=== PATIENT | female | born 1955 | race Caucasian/White ===

== ENCOUNTER 2022-03-16 15:52 | Outpatient (RCR) | payer BC, SELFPAY | END 2022-05-21 07:38 | disposition home or self-care (01) | PROVIDERS: Visit Provider Family Medicine | DX: M25.559 Pain in unspecified hip (principal); M54.50 Low back pain, unspecified; Z51.89 Encounter for other specified aftercare | CPT/HCPCS: 97110; 97162 ==

== ENCOUNTER 2022-07-08 11:02 | Emergency (ER) | payer BC, SELFPAY ==
[2022-07-08] VITALS (10 sets, daily range): BP systolic 108–135; BP diastolic 64–79; PULSE 57–75; RESP 16–20; TEMP 36.6; O2SAT 92–97; BMI 19.6
--- NOTE | 2022-07-08 11:47 | ED_ITS ---
HPI - General Adult General Time Seen by Provider: 11:48 Date Seen: 07/08/22 Chief complaint: Weakness Stated complaint: Dehydrated Time Seen by Provider: 07/08/22 11:32 Source: patient and RN notes reviewed Mode of arrival: ambulatory Limitations: no limitations History of Present Illness HPI narrative: Patient is a 67-year-old female coming into the ER with concern of weakness. She states she was told to come in and get IV fluids. On Tuesday this past weekend she had severe chills, body aches, did not feel well. She completed her shift at the [employer]. She did end up getting a new thermometer that her son brought her as hers was broke. She ran temperatures intermittently up to 102. She went into the clinic at [facility] Tuesday and then again yesterday. Yesterday they did a COVID swab but it is still pending. On Tuesday she states they did some blood work and that looked good. She did not get any testing for influenza or any thing of that nature. Yesterday she had a little dry sore throat for a little bit but nothing since. She has not noted any cough or cold symptoms otherwise. No nausea or vomiting. She had 1 day of constipation during this illness and then diarrhea the next day. Otherwise really nothing specific. She still just feeling weak. She states something kicks her butt. In her past medical history she denies any significant cardiopulmonary issues. She states she is prediabetic. She has had her gallbladder out, bone spur removal and a trigger finger surgery. She states at the visits her blood pressure was reportedly low, oxygen was mildly low at 1 visit. I do not have those records. Related Data Allergies Allergy/AdvReac Type Severity Reaction Status Date / Time bacitracin Allergy Verified 07/08/22 11:19 neomycin Allergy Verified 07/08/22 11:19 nickel Allergy Uncoded 07/08/22 11:19 Review of Systems Status of ROS: Reports: 10 or more systems reviewed and unremarkable except as noted in History and below [facility] Social History Smoking Status: Current every day smoker What tobacco products do you use: cigarettes Smoking packs per day: 0.5 Smoking cigarettes per day: 10.0 Years smoked: 45 Smoking pack-years: 22.50 Do you use any of these nicotine containing products: None Second hand tobacco smoke exposure: No How often do you have a drink containing alcohol: never How often do you have six or more drinks on one occasion: Never AUDIT-C Alcohol total score: 0 Non-prescribed substance use: denies use service: No Exam Const: Vital Signs, click to edit/add: Vital Signs - 24 hr 07/08/22 11:20 07/08/22 11:56 Temperature 97.9 F Pulse Rate [Pulse Oximeter] 70 Respiratory Rate 20 Blood Pressure [Le ft Upper Arm] 114/75 Pulse Oximetry 95 97 Oxygen Delivery Me thod Room Air Documenting provider has reviewed patient's vital signs: yes Common normals: no apparent distress, average body habitus, oriented x3, no limitations, healthy appearing and alert General appearance: cooperative, comfortable and well kempt Nutritional appearance: thin HENMT: Common normals: normocephalic, head/scalp atraumatic, hearing grossly normal bilaterally, external ears normal, TM's normal bilaterally, external nose normal, nasal mucous membranes and turbinates normal, moist oral mucous mem branes, oropharynx normal (But is edentulous) and gingiva normal Head and scalp: normocephalic and atraumatic Nose: external nose normal and nasal mucous membranes and turbinates normal External ear: external ears normal Tympanic membrane: TM's normal bilaterally Eye: Common normals: PERRL, EOMs intact bilaterally, conjunctivae normal and no scleral icterus Conjunctiva: conjunctiva(e) normal Pupil: PERRL Neck & C-Spine: Common normals: full ROM, no lymphadenopathy, supple, no meningeal signs, no JVD and thyroid normal Thyroid: thyroid normal Resp: Common normals: normal respiratory effort, no retractions and no use of accessory muscles Other: Has some faint fibrotic sounding crackles both bases, somewhat distant breath sounds. Cardio: Common normals: no JVD, regular rate, regular rhythm, S1 normal heart sound, S2 normal heart sound, no gallops, no clicks, no murmurs and no rub Rate: regular rate Rhythm: regular rhythm Heart sounds: S1 normal and S2 normal GI: Common normals: Normal to inspection, nondistended, normoactive bowel sounds present, soft to palpation, non-tender, no hepatosplenomegaly and no masses Palpation: soft and no hepatosplenomegaly Back & Pelvis: Common normals: thoracic and lumbar spine normal to inspection and no thoracic nor lumbar tenderness Extremity: Common normals: normal to inspection, full ROM, normal capillary refill, no joint enlargement, no clubbing, cyanosis or edema, no calf tenderness and no pedal edema Neuro: Common normals: oriented x3, CN's II-XII intact bilaterally, moves all extremities, no focal motor deficits, no sensory deficits noted and gait normal Sensorium/orientation: alert Meningeal signs: no meningeal signs Speech: speech normal Psych: Appearance: well kempt Course Course Hospital Course: Will consider cardiopulmonary etiologies, including infectious, viral versus bacterial. Sounds as if her fevers have abated. I do wonder if she had maybe 1 of the viral respiratory pathogens and had more of a febrile illness with out the actual coughs that we sometimes see with influenza or COVID. We will give her L of fluid. Right now she seems hemodynamically stable. Reevaluation(s) Reevaluation #1: Reviewed with Elizabeth that her test is positive for COVID, her labs are reassuring, no evidence of pneumonia on her chest x-ray. She is not hypoxic. She is out of treatment window. Her symptoms started on Tuesday, today is . She does not meet any criteria for hospitalization at this time. Reviewed with her that we will be discharging her to home. She requested a note that she was seen for COVID today and I will provide that. Time: 14:48 Vital Signs Vital signs: Initial Vital Signs Temperature 97.9 F 07/08/22 11:20 Temperature Source Temporal Artery Scan 07/08/22 11:20 Pulse Rate 70 07/08/22 11:20 Pulse Rhythm 07/08/22 11:20 Respiratory Rate 20 07/08/22 11:20 Blood Pressure 114/75 07/08/22 11:20 Blood Pressure Mean 88 07/08/22 11:20 Blood Pressure Position Supine 07/08/22 11:20 Pulse Oximetry 95 07/08/22 11:20 Oxygen Delivery Method 07/08/22 11:20 Vital Signs Temperature 97.9 F 07/08/22 11:20 Pulse Rate 70 07/08/22 11:20 Respiratory Rate 20 07/08/22 11:20 Blood Pressure 114/75 07/08/22 11:20 Pulse Oximetry 95 07/08/22 11:20 Oxygen Delivery Method 07/08/22 11:20 Temperature 97.9 F 07/08/22 11:20 Pulse Rate 70 07/08/22 11:20 Respiratory Rate 20 07/08/22 11:20 Blood Pressure 114/75 07/08/22 11:20 Pulse Oximetry 97 07/08/22 11:56 Oxygen Delivery Method 07/08/22 11:20 Medical Decision Making Lab Data Lab results reviewed: Yes I reviewed the patient's lab results Labs: Lab Results 07/08/22 07/08/22 07/08/22 Range/Units 11:15 12:20 12:20 WBC 3.85 L (4.50-11.00) K/uL RBC 4.66 (4.00-5.20) m/uL Hgb 14.9 (12.0-16.0) gm/dL Hct 44.0 (33.0-51.0) % MCV 94 (80-100) fL MCH 32 (26-34) pg MCHC 34 (32-36) gm/dL RDW Coeff of Chris 12.5 (11.5-15.5) % Plt Count 149 (140-440) K/uL Neut % (Auto) 39.8 L (42.0-72.0) % Lymph % (Auto) 39.7 (20-44) % Kenton % (Auto) 17.7 H (0.0-11.0) % Eos % (Auto) 2.3 (0.0-7.0) % Baso % (Auto) 0.5 (0.0-3.0) % Neut # (Auto) 1.50 L (1.7-7.0) K/uL Lymph # (Auto) 1.50 (0.90-2.90) K/uL Kenton # (Auto) 0.70 (0.00-0.90) K/UL Eos # (Auto) 0.10 (0.00-0.50) K/uL Baso # (Auto) 0.00 (0.00-0.30) K/uL Abs Immat Gran (auto) 0.00 (0.00-0.30) K/uL Imm/Tot Granulo (auto) 0.0 % Sodium 136 (135-149) mmol/L Potassium 4.1 (3.6-5.1) mmol/L Chloride 108 (96-114) mmol/L Carbon Dioxide 26 (20-32) mmol/L BUN 16 (7-30) mg/dL Creatinine 0.6 (0.5-1.5) mg/dL Estimated Creat Clear 50.20 Estimated GFR 100 ml/min Glucose 87 (60-115) mg/dL Lactate (0.5-1.9) mmol/L Calcium 8.8 (8.4-10.6) mg/dL Total Bilirubin 0.4 (0.1-1.5) mg/dL AST 46 H (12-35) U/L ALT 33 (4-35) U/L Alkaline Phosphatase 58 (40-150) U/L C-Reactive Protein 0.7 (0.5-1.0) mg/dL Total Protein 6.2 (6.0-8.3) g/dL Albumin 3.6 (3.3-5.0) g/dL Urine Color Yellow (Yellow) Urine Appearance Clear (Clear) Urine pH 6.0 (5.0-8.5) Ur Specific Tomball 1.025 (1.000-1.030) Urine Protein Negative (Negative) Urine Glucose (UA) Negative (Negative) Urine Ketones Negative (Negative) Urine Blood Negative (Negative) Urine Nitrite Negative (Negative) Urine Bilirubin Negative (Negative) Urine Urobilinogen 0.2 (0.2-1.0) Ur Leukocyte Esterase Negative (Negative) Urine RBC 0-2 (0-2) Urine WBC 0-2 (0-5) Ur Squamous Epith Cells Few (None-Few) Calcium Oxalate Crystal Many A (None) Urine Bacteria None (None) SARS-CoV-2 (PCR) (Negative) Influenza Type A (PCR) (Negative) Influenza Type B (PCR) (Negative) RSV (PCR) (Negative) POC Troponin I (0.01-0.04) ng/ml 07/08/22 07/08/22 07/08/22 Range/Units 12:20 12:20 12:20 WBC (4.50-11.00) K/uL RBC (4.00-5.20) m/uL Hgb (12.0-16.0) gm/dL Hct (33.0-51.0) % MCV (80-100) fL MCH (26-34) pg MCHC (32-36) gm/dL RDW Coeff of Chris (11.5-15.5) % Plt Count (140-440) K/uL Neut % (Auto) (42.0-72.0) % Lymph % (Auto) (20-44) % Kenton % (Auto) (0.0-11.0) % Eos % (Auto) (0.0-7.0) % Baso % (Auto) (0.0-3.0) % Neut # (Auto) (1.7-7.0) K/uL Lymph # (Auto) (0.90-2.90) K/uL Kenton # (Auto) (0.00-0.90) K/UL Eos # (Auto) (0.00-0.50) K/uL Baso # (Auto) (0.00-0.30) K/uL Abs Immat Gran (auto) (0.00-0.30) K/uL Imm/Tot Granulo (auto) % Sodium (135-149) mmol/L Potassium (3.6-5.1) mmol/L Chloride (96-114) mmol/L Carbon Dioxide (20-32) mmol/L BUN (7-30) mg/dL Creatinine (0.5-1.5) mg/dL Estimated Creat Clear Estimated GFR ml/min Glucose (60-115) mg/dL Lactate 1.0 (0.5-1.9) mmol/L Calcium (8.4-10.6) mg/dL Total Bilirubin (0.1-1.5) mg/dL AST (12-35) U/L ALT (4-35) U/L Alkaline Phosphatase (40-150) U/L C-Reactive Protein (0.5-1.0) mg/dL Total Protein (6.0-8.3) g/dL Albumin (3.3-5.0) g/dL Urine Color (Yellow) Urine Appearance (Clear) Urine pH (5.0-8.5) Ur Specific Tomball (1.000-1.030) Urine Protein (Negative) Urine Glucose (UA) (Negative) Urine Ketones (Negative) Urine Blood (Negative) Urine Nitrite (Negative) Urine Bilirubin (Negative) Urine Urobilinogen (0.2-1.0) Ur Leukocyte Esterase (Negative) Urine RBC (0-2) Urine WBC (0-5) Ur Squamous Epith Cells (None-Few) Calcium Oxalate Crystal (None) Urine Bacteria (None) SARS-CoV-2 (PCR) POSITIVE SARS-CoV-2 A (Negative) Influenza Type A (PCR) Negative PCR FLU A (Negative) Influenza Type B (PCR) Negative PCR FLU B (Negative) RSV (PCR) Negative PCR RSV (Negative) POC Troponin I 0.00 L (0.01-0.04) ng/ml Imaging Data Chest x-ray: Attestation: I have reviewed the pertinent imaging results. My impression: My preliminary review of her chest x-ray is no acute cardiopulmonary pathology. Radiologist's impression: Patient: ELIZABETH FREITAS Facility:?[facility] Patient ID:?[id number] Site Patient [id number]:?[id number]. Site :?[id number] Study:?XRay Chest PORTABLE 1 VIEW-07/08/2022 12:51:45 PM Ordering Physician:?Paco Martines Final Report: INDICATION: Fever and weakness. COMPARISON: None TECHNIQUE: Single-view study as in AP sitting exam FINDINGS: TUBES AND LINES: None. HEART AND MEDIASTINUM: The heart size is normal. The mediastinal contour appears normal for patient age. LUNGS AND PLEURAL SPACES: No definite focal consolidation, infiltrate or mass.The pleural spaces are unremarkable. OSSEOUS STRUCTURES: Age-appropriate appearance. No acute focal finding. IMPRESSION: No evidence of active pulmonary disease. Dictated by Claude Kumar MD @ 07/08/2022 1:45:40 PM (Electronic Signature) Critical Care Time Critical Care Time Critical Care Time: No Discharge Plan Discharge Clinical Impression: COVID-19, Weakness Condition: Stable Instructions: COVID-19 (Coronavirus Disease 2019) (ED), COVID-19: Slow the Coronavirus Spread (ED) Additional Instructions: Rest, drink plenty of fluids. Can use Tylenol if needed for any discomfort, follow bottle directions for dosing. If you have ongoing weakness/fatigue, need to follow-up with your primary care provider for ongoing management of COVID. Some patients do have prolonged symptoms, some develop long-haul symptoms. Activity Level: Activity as Tolerated Stand Alone Forms: [facility] Info Instructions
--- NOTE | 2022-07-08 11:56 | CRLHL7_ITS ---
For Patients: As a result of the Cures Act, medical imaging exams and procedure reports are released immediately into your electronic medical record. You may view this report before your referring provider. If you have questions, please contact your health care provider. INDICATION: Fever and weakness. COMPARISON: None TECHNIQUE: Single-view study as in AP sitting exam FINDINGS: TUBES AND LINES: None. HEART AND MEDIASTINUM: The heart size is normal. The mediastinal contour appears normal for patient age. LUNGS AND PLEURAL SPACES: No definite focal consolidation, infiltrate or mass.The pleural spaces are unremarkable. OSSEOUS STRUCTURES: Age-appropriate appearance. No acute focal finding. IMPRESSION: No evidence of active pulmonary disease. Dictated by Claude Kumar MD @ 07/08/2022 1:45:40 PM (Electronically Signed)
--- OUTSIDE RECORDS SUMMARY | 2022-07-08 12:02 | XMS_ITS | Clinical Summary ---
:1955 Author Organization [facility] [place] [address] Care Team Providers Name Role Phone KeyurErick welsh Primary Care Provider [phone] Allergies Active Allergy Reactions Severity Noted Date Comments Bacitracin Rash 02/02/2018 Neomycin Rash 07/20/2010 Nickel Rash 07/20/2010 Medications Medication Sig Dispensed Refills Start Date End Date Status clobetasol cream Apply topically 60 g 1 04/17/2018 Active 0.05% (TEMOVATE) to affected 0.05 % area(s) 2 times creamIndications: daily. Eczema, unspecified type aluminum chloride Apply topically 35 mL 1 09/04/2020 Active (DRYSOL) 20 % to affected external area(s) at solutionIndicatio bedtime. ns: Plantar wart Accu-Chek once daily. 0 01/19/2021 Active Fastclix Lancet Drum conjugated TAKE ONE TABLET 90 Tablet 3 07/30/2021 Ac tive estrogens-medroxy BY MOUTH ONCE PROGESTERone, DAILY NEEDED 0.625-2.5 mg, FOR HOT FLASHES (Prempro) 0.625-2.5 mg per tabletIndications : Symptomatic menopausal or female climacteric states nicotine Inhale 10 mg by 168 Each 5 11/25/2021 Act william (NICOTROL) 10 mg mouth every inhalerIndication hour while s: Nicotine awake as needed dependence, for Nicotine uncomplicated, Craving. unspecified nicotine product type hydrOXYzine HCL Take 1-2 60 Tablet 5 02/11/2022 Act william (ATARAX) 25 mg Tablets (25-50 tabletIndications mg) by mouth at : Insomnia, bedtime if idiopathic needed (sleep). doxepin 25 mg TAKE ONE 30 Capsule 0 07/05/2022 Acti ve capsuleIndication CAPSULE BY s: Insomnia, MOUTH AT idiopathic BEDTIME doxepin 25 mg Take 1 Capsule 30 Capsule 0 06/09/2022 2 Discontinued capsuleIndication (25 mg) by s: Insomnia, mouth at idiopathic bedtime. Hospital, Clinic, or Ordered Dose Route Frequency Start Date End D ate Status Other Facility Administered Medication cyanocobalamin 1,000 1000 mcg IM Q 4 WEEKS (28 05/23/2020 Active mcg injection (VITAMIN DAYS) B12)Indications: B12 deficiency Active Problems Problem Noted Date Type 2 diabetes mellitus without complication, without long-term current 02/11/2022 use of insulin Situational stress 05/18/2015 Tobacco use disorder 01/30/2012 Insomnia 12/16/2008 Symptomatic menopausal or female climacteric states Thyroid function study abnormality Allergic rhinitis, cause unspecified Vitamin D deficiency Abnormal Pap smear of cervix Overview: [place] in 1999 in history Encounters Date Type Specialty Care Team Description 07/07/2022 Emergency 07/07/2022 Office Visit Bradley Kennedy URI (Cough , sore MD throat, body ac hes x 6 days) 07/07/2022 Travel 07/05/2022 Office Visit Zoey Muñiz Fever (Patient states KYARA Wright symptoms start ed on Tuesday. Fever , chills., body a ches. Cold sweats. Th is morning diarrhea./Patimainor nt denies cough, s ore throat, difficu lty breathing, vomiting./Patimainor nt has not tested for COVID-19./Nilesh nt has taken tylenol a nd heating pad.) 07/05/2022 Travel 07/02/2022 Refill Kristen Garibay Refill Requ KYARA Hercules (Doxepin) 06/09/2022 Office Visit Kristen Garibay Derm Proble m (Check KYARA Mcbride spots on R hand ) 06/09/2022 Travel 06/08/2022 Office Visit Nigel Womack Ray, Dizziness ; Fatigue; Ear MD Problem (left) 06/07/2022 Travel 05/13/2022 Nurse/Clinic Staff Immunizat ion/Injection Only (B12) 05/13/2022 Travel 04/15/2022 Nurse/Clinic Staff Immunizat ion/Injection Only (Vitamin B12) 04/15/2022 Travel from Last 3 Months Immunizations Name Administration Dates Next Due Pneumococcal Conj 20-valent (Prevnar 20) 02/11/2022 Pneumococcal Poly,23-Valent (Pneumovax) 12/16/2008 Td (Age >=7 Years) 04/30/1998 Tdap 01/20/2018, 12/16/2008 Zoster (Shingrix-RZV, recombinant) 08/31/2018, 04/20/2018 Family History Medical History Relation Name Comments Cirrhosis Maternal Grandfather Alzheimer's disease Maternal Grandmother Coronary artery disease Maternal Grandmother Diabetes Mother Other Mother glaucoma Gallbladder disease Sister Cancer-breast No Family History Relation Name Status Comments Brother Alive x1 Maternal Grandfather Maternal Grandmother Mother Paternal Grandfather Paternal Grandmother Sister Alive x1 Son Alive x1 Social History Tobacco Use Types Packs/Day Years Used Date Current Every Day Smoker Cigarettes 1.5 30 Smokeless Tobacco: Never Used Tobacco Cessation: Ready to Quit: No; Co unseling Given: Yes Comments: quitting tobacco pamphlet give n Alcohol Use Standard Drinks/Week Comments No 0 (1 standard drink = 0.6 oz pure alcoho l) Sex Assigned at Date Recorded Not on file COVID-19 Exposure Response Date Recorded In the last 10 days, have you been in contact with No / Unsu re 07/07/2022 1:11 PM MORGUE ATTENDANT someone who was confirmed or suspected to have Coronavirus/COVID-19? Obstetrics History Last Filed Vital Signs Vital Sign Reading Time Taken Comments Blood Pressure 109/64 07/07/2022 6:28 PM MORGUE ATTENDANT Pulse 88 07/07/2022 6:27 PM MORGUE ATTENDANT Temperature 37.3 ??C (99.1 ??F) 07/07/2022 6:27 PM MORGUE ATTENDANT Respiratory Rate 16 07/07/2022 6:27 PM MORGUE ATTENDANT Oxygen Saturation 97% 07/07/2022 6:27 PM MORGUE ATTENDANT Inhaled Oxygen Concentration - - Weight 57.2 kg (126 lb) 07/07/2022 6:27 PM MORGUE ATTENDANT Height 170.2 cm (5' 7) 07/07/2022 6:27 PM MORGUE ATTENDANT Body Mass Index 19.73 07/07/2022 6:27 PM MORGUE ATTENDANT Plan of Treatment Upcoming Encounters Date Type Specialty Care Team Description 07/08/2022 Nurse/Clinic Staff Only 08/05/2022 Nurse/Clinic Staff Only Health Maintenance Due Date Last Done Comments COVID-19 vaccine series (#1) 1955 HIV for age 15-65 1972 Colonoscopy through age [address] (for lung CA) age 0804/11/2007 50-80 Depression screening for age 12+ 03/18/2021 03/18/2020, 10/2018, 01/26/2018, Additional history exists Pap test for age 21-65 06/17/2021 06/17/2016, 06/17/2016, 11/09/2012, Additional history exists Mammogram for age 45-75 09/04/2021 09/04/2020, 07/12/2019, 04/17/2018, Additional history exists DEXA/DXA scan for age 65+ 2022 07/02/2010 Influenza for age 65+ 04/22/2022 BMI (ht and wt on same day) for 06/08/2023 06/08/2022, 01/21, age 18+ 08/28/2021, Additional history exists Lipids for age 45-75 07/30/2026 07/30/2021, 08/27/2020, 06/12/2019, Additional history exists Tetanus booster 01/21/2028 01/20/2018, 12/16/2008, 04/30/1998 Tdap Completed 01/20/2018, 12/16/2008 Zoster (shingles) series for age Completed 08/31/2018, 50+ Hepatitis C screening for age Completed 03/18/2020 18-79 Pneumococcal series for age 65+ Completed 02/11/2022, 11/21 Procedures Procedure Name Priority Date/Time Associated Comments Diagnosis COVID 19 COLLECTION Routine 07/07/2022 2:08 PM Influenza-like Results for this MORGUE ATTENDANT illness procedure are in Exposure to the results COVID-19 virus section. CBC WITH AUTO Routine 07/05/2022 8:32 AM Influenza-like Result s for this DIFFERENTIAL MORGUE ATTENDANT illness procedure are i n the results section. CBC WITH AUTO Routine 07/05/2022 8:32 AM Influenza-like Result s for this DIFFERENTIAL MORGUE ATTENDANT illness procedure are i n the results section. CBC WITH AUTO Routine 06/08/2022 8:05 AM Dizziness Results for this DIFFERENTIAL CDT procedure are i n the results section. BASIC METABOLIC PANEL Routine 06/08/2022 8:05 AM Dizziness Results for this CDT procedure are i n the results section. CBC WITH AUTO Routine 06/08/2022 8:05 AM Dizziness Results for this DIFFERENTIAL CDT procedure are i n the results section. from Last 3 Months Results COVID 19 COLLECTION (07/07/2022 2:08 PM MORGUE ATTENDANT) [facility] Method Time Signature TESTING [facility] 07/08/2022 [facility] Laboratory 6:16 AM MORGUE ATTENDANT LABORATORY-CE NTRAL LABORATORY Comment: Specimen submitted to [facility] for testing. Specimen Anatomical Location / Collection Method Collection Tushar e Received Time (Source) Laterality / Volume Other SPECIMEN FROM Non-Blood / 07/07/2022 2:08 07/07/2022 2:08 NASOPHARYNGEAL Unknown PM MORGUE ATTENDANT PM MORGUE ATTENDANT STRUCTURE / Unknown Zoey SPARROW SEND OUTS Performing Organization Address City/State/ZIP Code Phon e Number [facility] [address] [place] [address] LABORATORY-CENTRAL 2000 LABORATORY (ABNORMAL) CBC WITH AUTO DIFFERENTIAL (07/05/2022 8:32 AM MORGUE ATTENDANT)Only the most recent of2 resultswithin the time period is included. [facility] Method Time Signature WHITE BLOOD 4.5 4.5 - 07/05/2022 [facility] COUNT 11.0 8:38 AM [facility] thou/cu CLINIC mm RED BLOOD COUNT 5.25 (H) 4.00 - 07/05/2022 [facility] 5.20 8:38 AM [facility] mil/ mm CLINIC HEMOGLOBIN 17.0 (H) 12.0 - 07/05/2022 [facility] 16.0 g/dL 8:38 AM [facility] HEMATOCRIT 50.4 33.0 - 07/05/2022 [facility] 51.0 % 8:38 AM [facility] MCV 96 80 - 100 07/05/2022 [facility] fL 8:38 AM [facility] MCH 32.4 26.0 - 07/05/[address] [facility] 34.0 pg 8:38 AM [facility] MCHC 33.7 32.0 - 07/05/[address] [facility] 36.0 g/dL 8:38 AM [facility] RDW 13.8 11.5 - 07/05/[address] [facility] 15.5 % 8:38 AM [facility] PLATELET COUNT 141 140 - 440 07/05/2022 [facility] thou/cu 8:38 AM [facility] MPV 10.1 6.5 - 07/05/[address] [facility] 11.0 fL 8:38 AM [facility] % NEUT 39.2 % 07/05/[address] [facility] 8:38 AM [facility] % LYMPH 38.5 % 07/05/2022 [facility] 8:38 AM [facility] % MONO 21.7 % 07/05/2022 [facility] 8:38 AM [facility] % EOS 0.2 % 07/05/2022 [facility] 8:38 AM [facility] % BASO 0.4 % 07/05/2022 [facility] 8:38 AM [facility] ABSOLUTE 1.8 1.7 - 7.0 07/05/2022 [facility] NEUTROPHILS thou/cu 8:38 AM [facility] ABSOLUTE 1.7 0.9 - 2.9 07/05/2022 [facility] LYMPHOCYTES thou/cu 8:38 AM [facility] ABSOLUTE 1.0 (H) <0.9 07/05/2022 [facility] MONOCYTES thou/cu 8:38 AM [facility] ABSOLUTE 0.0 <0.5 07/05/2022 [facility] EOSINOPHILS thou/cu 8:38 AM [facility] ABSOLUTE 0.0 <0.3 07/05/2022 [facility] BASOPHILS thou/cu 8:38 AM [facility] Specimen Anatomical Collection Method / Collection Time Recei benjamin Time (Source) Location / Volume Laterality Blood BLOOD SPECIMEN / Venipuncture / 07/05/2022 8:32 2021 8:33 Unknown Unknown AM MORGUE ATTENDANT AM MORGUE ATTENDANT Zoey SPARROW HEMATOLOGY Performing Organization Address City/State/ZIP Code Phon e Number [facility] [address] [place] [address] (ABNORMAL) BASIC METABOLIC PANEL (06/08/2022 8:05 AM CDT) Analysis Performed At Patho logist Time Signature SODIUM 141 135 - 145 06/08/2022 [facility] mmol/L 11:27 PM CDT LABORATORY-[facility] TRAL LABORATORY POTASSIUM 5.1 (H) 3.5 - 5.0 06/08/2022 [facility] mmol/L 11:27 PM CDT [facility] TRAL LABORATORY CHLORIDE 107 98 - 110 06/08/2022 [facility] mmol/L 11:27 PM CDT [facility]AT[facility] TRAL LABORATORY CO2,TOTAL 27 21 - 31 06/08/2022 [facility] mmol/L 11:27 PM CDT LAB[facility] TR[facility] LABORATORY ANION GAP 7 5 - 18 06/08/2022 [facility] 11:27 PM CDT [facility] TRAL LABORATORY GLUCOSE 148 (H) 65 - 100 06/08/2022 [facility] mg/dL 11:27 PM CDT LAB[facility]AT[facility] TRAL LABORATORY CALCIUM 9.2 8.5 - 10.5 06/08/2022 [facility] mg/dL 11:27 PM CDT [facility] TR[facility] LABORATORY BUN 24 8 - 25 06/08/2022 [facility] mg/dL 11:27 PM CDT [facility] TRAL LABORATORY CREATININE 0.78 0.57 - 06/08/2022 [facility] 1.11 mg/dL 11:27 PM CDT [facility] TR[facility] LABORATORY BUN/CREAT RATIO 31 (H) 10 - 20 06/08/2022 [facility] 11:27 PM CDT LAB[facility]AT[facility] TRAL LABORATORY eGFR 84 (L) >90 06/08/2022 [facility] mL/min/1.7 11:27 PM CDT LABORATORY-[facility] 3m2 TRAL LABORATORY Comment: As of 2021, eGFR is calcu lated by the CKD-EPI creatinine equation without race adjustment. eGFR can be inf luenced by muscle mass, exercise, and diet. The reported eGFR is an estimation only and is only applicable if the renal function is stable. Specimen Anatomical Collection Method / Collection Time Recei benjamin Time (Source) Location / Volume Laterality Blood BLOOD SPECIMEN / Venipuncture / 06/08/2022 8:05 2021 8:08 Unknown Unknown AM CDT AM CDT Nigel Womack MD CHEMISTRY Performing Organization Address City/State/ZIP Code Phon e Number [facility] [address] [place] [address] LABORATORY-CENTRAL 1999 LABORATORY from Last 3 Months Additional Health Concerns Infection Onset Date Last Indicated Rule-Out COVID-19 07/07/2022 07/07/2022 Insurance Payer Benefit Plan / Subscriber ID Effective Dates Phone Addre ss Type Group [place] [id number] 2012-Present [address] [address] [place] [address] [place] [id number] 2020-Present [address] [address] [place] [address] (Home) [place] [id number] Elizabeth Zavaleta Personal/Family Self [address] (Home) [place] [id number] Elizabeth Zavaleta [employer] Self [address]Home) [place] [address] Care Teams Home Health Scheduler Relationship Specialty Start Date End Date Erick Campbell, PCP - General 02/18/[address] [place] [address]
[2022-07-08] MEDS: 0.9 % SODIUM CHLORIDE 1000 ml 1,000 ML 500 ML IV (12:36)
[2022-07-08 12:38] LABS: Basophils Percent Auto 0.5 % (0.0-3.0); Eosinophils Percent Auto 2.3 % (0.0-7.0); Hemoglobin* 14.9 gm/dL (12.0-16.0); Lymphocytes Percent Auto 39.7 % (20-44); Mean Corpuscular HGB Conc 34 gm/dL (32-36); Mean Corpuscular Hemoglobin 32 pg (26-34); Mean Corpuscular Volume 94 fL (80-100); Monocytes Percent Auto 17.7 % (0.0-11.0); Neutrophils Percent Auto 39.8 % (42.0-72.0); Platelet Count* 149 K/uL (140-440); RDW Coefficient of Variation % 12.5 % (11.5-15.5); Red Blood Count 4.66 m/uL (4.00-5.20); White Blood Count* 3.85 K/uL (4.50-11.00)
[2022-07-08 12:41] LABS: Slide Review Reflex No
[2022-07-08 12:54] LABS: Albumin* 3.6 g/dL (3.3-5.0); Chloride* 108 mmol/L (96-114)
[2022-07-08 12:55] LABS: Potassium* 4.1 mmol/L (3.6-5.1); Sodium* 136 mmol/L (135-149)
[2022-07-08 12:57] LABS: Bilirubin Total* 0.4 mg/dL (0.1-1.5); Creatinine* 0.6 mg/dL (0.5-1.5); Estimated Glomerular Filt Rate 100 ml/min
[2022-07-08 12:58] LABS: Alanine Aminotransferase* 33 U/L (4-35); Alkaline Phosphatase* 58 U/L (40-150); Aspartate Amino Transferase* 46 U/L (12-35); Blood Urea Nitrogen* 16 mg/dL (7-30); Calcium* 8.8 mg/dL (8.4-10.6); Carbon Dioxide* 26 mmol/L (20-32); Glucose* 87 mg/dL (60-115); Total Protein* 6.2 g/dL (6.0-8.3)
[2022-07-08 13:01] LABS: C Reactive Protein* 0.7 mg/dL (0.5-1.0)
[2022-07-08 13:15] LABS: PCR FLU A Negative PCR FLU A (Negative); PCR FLU B Negative PCR FLU B (Negative); PCR RSV Negative PCR RSV (Negative)
[2022-07-08 13:24] LABS: SARS PCR* POSITIVE SARS-CoV-2 (Negative)
[2022-07-08 13:42] LABS: Appearance Urine Clear (Clear); Bilirubin Urine Negative (Negative); Blood Urine Negative (Negative); Color Urine Yellow (Yellow); Glucose Urine Negative (Negative); Ketones Urine Negative (Negative); Leukocyte Esterase Urine Negative (Negative); Nitrite Urine Negative (Negative); Protein Urine Negative (Negative); Specific Gravity Urine 1.025 (1.000-1.030); Urobilinogen Urine 0.2 (0.2-1.0)
[2022-07-08 13:52] LABS: RBC Urine 0-2 (0-2); WBC Urine 0-2 (0-5)
[2022-07-08 13:53] LABS: Squamous Epithelial Cell Urine Few (None-Few)
[2022-07-08 14:00] LABS: Calcium Oxalate Crystals Urine Many
== END 2022-07-08 15:15 | disposition home or self-care (01) ==
PROVIDERS: Emergency Provider Family Medicine; PCP Family Medicine
DX: U07.1 COVID-19 (principal)
CPT/HCPCS: 36415; 71045; 80053; 81001; 83605; 85025; 86140; 87502; 87634; 87635; 94761; 99284; J7030

== ENCOUNTER 2023-06-08 08:29 | Outpatient (RCR) | payer BC, SELFPAY | END 2023-10-06 23:59 | disposition home or self-care (01) | PROVIDERS: PCP Family Medicine; Visit Provider Family Medicine | DX: M79.644 Pain in right finger(s) (principal); Z51.89 Encounter for other specified aftercare | CPT/HCPCS: 97165; L3933 ==